=== PATIENT | female | born 1985 | race Caucasian/White ===

== ENCOUNTER 2018-02-16 23:35 | Observation (INO) ==
--- NOTE | 2018-02-17 00:07 | Emergency Department Note ---
ED Disposition Clinical Impression: Asthma with exacerbation Qualifiers: Asthma severity: unspecified severity Asthma persistence: unspecified Qualified Code(s): J45.901 - Unspecified asthma with (acute) exacerbation Community acquired pneumonia Qualifiers: Laterality: right Lung location: lower lobe of lung Qualified Code(s): J18.1 - Lobar pneumonia, unspecified organism Qualifiers: Weeks of gestation: 35 weeks Qualified Code(s): Z3A.35 - 35 weeks gestation of Disposition: Admitted as Observation Condition on Discharge: Good Referrals: Provider,Referral, [Primary Care Provider] - - Critical Care Critical Care Time: No Attestation: On 02/16/18, the high probability of a clinically significant, sudden or life threatening deterioration of the following system(s) required my full and direct attention, intervention and personal management. The time I documented below is in addition to time spent performing reported procedures but includes the following listed in this critical care notation. Medical Decision Making - Medical Records Medical records reviewed: Yes: I reviewed the patient's medical records. - Shad Inquiry Pt receiving controlled substance: No Vital Signs: 02/16/18 23:38 02/17/18 00:04 02/17/18 00:05 Temperature 98.4 F Temperature Source Oral Pulse Rate 91 H 93 H Pulse Rate [Right Radial] 139 H Respiratory Rate 25 H Blood Pressure [Right Arm] 144/78 H Blood Pressure Mean [Right Arm] 100 02 Sat by Pulse Oximetry 94 L Oxygen Delivery Method Oxygen Flow Rate (LPM) 02/17/18 00:44 02/17/18 01:30 02/17/18 02:30 Temperature Temperature Source Pulse Rate 93 H Pulse Rate [Right Radial] 126 H 120 H Respiratory Rate 22 22 Blood Pressure [Right Arm] 114/75 117/69 Blood Pressure Mean [Right Arm] 88 85 02 Sat by Pulse Oximetry 96 93 L Oxygen Delivery Method Room Air Room Air Oxygen Flow Rate (LPM) 02/17/18 02:41 02/17/18 02:51 02/17/18 03:00 Temperature Temperature Source Pulse Rate Pulse Rate [Right Radial] 132 H 121 H Respiratory Rate 24 24 Blood Pressure [Right Arm] 132/78 Blood Pressure Mean [Right Arm] 96 02 Sat by Pulse Oximetry 93 L 98 92 L Oxygen Delivery Method Room Air Nasal Cannula Nasal Cannula Oxygen Flow Rate (LPM) 2 2 - Lab Data Lab results reviewed: Yes: I reviewed the patient's lab results. Lab Results 02/16/18 23:55: WBC 8.3, RBC 3.89 L, Hgb 11.3 L, Hct 34.4 L, MCV 88.3, MCH 29.0, MCHC 32.8, RDW 13.1, Plt Count 174, MPV 9.4, Neut % (Auto) 76.1, Lymph % (Auto) 14.0, [place] % (Auto) 7.4, Eos % (Auto) 2.3, Baso % (Auto) 0.2, Neut # (Auto) 6.3, Lymph # (Auto) 1.2, [place] # (Auto) 0.6, Eos # (Auto) 0.2, Baso # (Auto) 0.0 02/16/18 23:55: Sodium 141, Potassium 3.5, Chloride 106, Carbon Dioxide 24, Anion Gap 14.5, BUN 2 L, Creatinine 0.57, Estimated Creat Clear 234, Estimated GFR 122, Est GFR ( Amer) 148, Glucose 99, Calcium 8.6 02/17/18 02:13: Specimen Source R/r, O2 % R/a, ABG pH 7.43, ABG pCO2 30.7 L, ABG pO2 63.3 L, ABG HCO3 19.7 L, ABG Total CO2 20.7 L, ABG O2 Saturation 92, ABG Base Excess -4.6 L, [place] Test Y Result diagrams: 02/16/18 23:55 02/16/18 23:55 Orders (Tests/Meds): ED MEDICATIONS Generic Name Dose Route Start Last Admin Trade Name Jeancarlos PRN Reason Stop Dose Admin Albuterol Sulfate 2 puffs 02/17/18 06:00 Proventil-Hfa 90mcg/Puff Inhaler IH 03/19/18 05:59 Q6RT NOREEN Azithromycin 500 mg/ Sodium 250 mls @ 250 mls/hr 02/17/18 02:45 02/17/18 02:52 Chloride IV 03/03/18 02:44 250 mls/hr Q24H NOREEN Administration Protocol Ceftriaxone Sodium 1 gm/ 50 mls @ 100 mls/hr 02/17/18 02:45 02/17/18 02:46 Sodium Chloride IV 03/03/18 02:44 100 mls/hr Q24H NOREEN Administration Protocol Discontinued Medications Generic Name Dose Route Start Last Admin Trade Name Jeancarlos PRN Reason Stop Dose Admin Albuterol/Ipratropium 3 ml 02/16/18 23:48 02/17/18 00:[address] [facility] 02/16/18 23:49 3 ml ONCE ONE Administration Levalbuterol HCl 1.25 mg 02/17/18 01:58 02/17/18 02:30 Xopenex 1.25mg/3ml [facility] 02/17/18 01:59 1.25 mg ONCE ONE Administration Methylprednisolone Sodium Succinate 125 mg 02/17/18 00:13 02/17/18 00:16 Solu-Medrol 125mg/2ml Vial IV 02/17/18 00:14 125 mg ONCE ONE Administration Miscellaneous 1 unit 02/17/18 00:56 02/17/18 01:07 Aerochamber/Optihaler MC 02/17/18 00:57 1 unit ONCE ONE Administration ORDERS Category Date Time Status Chest XR -- portable [XR chest portable] Stat Exams 02/17/18 02:21 Taken Lactic Acid Stat Lab 02/17/18 02:35 Received Upper Respiratory Panel, PCR Stat Lab 02/17/18 02:35 Received Blood Culture Stat Micro 02/17/18 02:35 Ordered ABG [Arterial Blood Gas] Stat RT 02/17/18 01:57 Ordered - Radiology Data #1 Image(s): Chest Image Reviewed: Yes I reviewed the patient's radiology image Preliminary Findings: Abnormal (rt lower infl) - Physician Consults Physician Consulted: dom Reason -: Admission Additional Consult: seble Reason -: Pt condition Additional Consult: shell Reason -: Pt condition Resp/SOB HPI - General Chief Complaint: Shortness of Breath/Dyspnea Stated Complaint: difficulty breathing for a while Time Seen by Provider: 02/17/18 00:00 Mode of Arrival: Family Vehicle Source of Information: Patient, Significant Other, Medical Record Limitations: No Limitations Description of Symptoms (Recalled from ER Triage Doc. by RN): pt is 35 weeks . pt states she has asthma and has been sick for 3 days. pt states that she has been progressively getting worse. pt states she now is having difficulty breathing, cough and chest congestion. - History of Present Illness hx of asthma with wheezing and is 35 weeks MD Complaint: shortness of breath, cough, "asthma attack" Onset (ago): day(s) Severity: moderate Relieving factors: bronchodilators Known history of: asthma Associated symptoms: wheezing Treatment prior to arrival: bronchodilator - Related Data Home oxygen amount: none Home Medications Medication Instructions Recorded Confirmed Albuterol Sulfate [Albuterol HFA 1 puff IH Q4HP PRN 02/16/18 02/16/18 Inhaler] Montelukast Sodium [Singulair 10mg 10 mg PO DAILY 02/16/18 02/16/18 tablet] raNITIdine HCl [Ranitidine HCl] 150 mg PO DAILY 02/16/18 02/16/18 Allergies Allergy/AdvReac Type Severity Reaction Status Date / Time No Known Allergies Allergy Verified 02/16/18 23:44 [facility] History I have reviewed the patient's past medical history: Yes Medical History: Denies:: Cancer, Diabetes Mellitus Type 1, Diabetes Mellitus Type 2, MRSA Laterality Cases: Bilateral: Tonsillectomy Amputation: No - Social History Smoking Status: Never smoker Alcohol Intake: never - Psychiatric History Expresses thoughts of harming self/others: None Suicide Plan Description: No Plan Para: 4 ROS Obtained: Yes All systems reviewed & no additional complaints - Constitutional Constitutional: Denies fever(s) - Eyes Eyes: Denies change in vision - ENT Ears, Nose, Mouth, and Throat: Denies sinus pain - Cardiovascular Cardiovascular: Denies chest pain - Respiratory Respiratory: Yes cough, Yes wheezing - Gastrointestinal Gastrointestingal: Denies: abdominal pain - Genitourinary Female Genitourinary: Denies abnormal vaginal bleeding - Musculoskeletal Musculoskeletal: Denies joint pain - Integumentary/Breasts Skin/Breast: Denies rash - Neurologic Neurologic: Denies seizure-like activity Physical Exam - General General appearance: alert, in no apparent distress - Head Head exam: normocephalic - Eye Eye exam: Present: PERRL, EOMI - ENT ENT exam: Present: mucous membranes dry - Neck Neck exam: Present: trachea midline - Respiratory Respiratory exam: Present: wheezes. Absent: respiratory distress - Cardiovascular Cardiovascular exam: Present: regular rate. Absent: systolic murmur - Abdominal Exam Abdominal exam: Present: soft - Extremities Exam Extremities exam: Present: full ROM - Neurological Exam Neurological exam: Present: alert, oriented X3, CN II-XII intact - Psychiatric Psychiatric exam: Present: normal affect - Skin Skin exam: Absent: rash
[2018-02-17 00:16] LABS: Basophils % 0.2 % (0.1-2.0); Eosinophils # 0.2 K/mm3 (0.0-0.4); Eosinophils % 2.3 % (0.1-12.0); Hematocrit 34.4 % (37.0-47.0); Hemoglobin 11.3 g/dL (12.2-16.2); Lymphocytes # 1.2 K/mm3 (0.7-4.5); Mean Corpuscular HGB Conc 32.8 g/dL (31.8-35.4); Mean Corpuscular Volume 88.3 fl (81-99); Mean Platelet Volume 9.4 fl (7.4-10.4); Monocytes # 0.6 K/mm3 (0.1-1.0); Monocytes % 7.4 % (1.7-9.3); Neutrophils # 6.3 K/mm3 (1.8-7.8); Neutrophils % 76.1 % (37.0-80.0); Platelet Count 174 K/mm3 (142-424); Red Blood Count 3.89 M/mm3 (4.20-5.40); Red Cell Distribution Width 13.1 % (11.5-17.5); White Blood Count 8.3 K/mm3 (4.8-10.8)
[2018-02-17 00:18] LABS: Anion Gap 14.5 mEq/L (5-15); Calcium 8.6 mg/dL (8.5-10.1); Potassium 3.5 mmoL/L (3.5-5.1)
[2018-02-17 02:14] LABS: ABG Base Excess -4.6 mmol/L (-2.4-2.3); ABG HCO3 19.7 mmhg (22.0-26.0); ABG Oxygen Saturation 92 % (90-100); ABG PCO2 30.7 mmhg (35.0-45.0); ABG PH 7.43 mmol/L (7.35-7.45); ABG PO2 63.3 mmhg (80-100); ABG TCO2 20.7 mmhg (23-27)
[2018-02-17 02:15] LABS: Allen's Test Y; Oxygen R/A %
[2018-02-17 02:48] LABS: Coronavirus 229E Not Detected (NotDetected); Coronavirus NL63 Not Detected (NotDetected); Coronavirus OC43 Not Detected (NotDetected); Coronovirus HKU1,PCR Not Detected (NotDetected)
[2018-02-17 05:38] LABS: Basophils % 0.2 % (0.1-2.0); Eosinophils % 0.2 % (0.1-12.0); Hematocrit 34.7 % (37.0-47.0); Hemoglobin 11.6 g/dL (12.2-16.2); Lymphocytes # 0.5 K/mm3 (0.7-4.5); Mean Corpuscular HGB Conc 33.5 g/dL (31.8-35.4); Mean Corpuscular Hemoglobin 29.7 pg (27.0-31.2); Mean Corpuscular Volume 88.7 fl (81-99); Mean Platelet Volume 9.8 fl (7.4-10.4); Monocytes # 0.2 K/mm3 (0.1-1.0); Monocytes % 2.1 % (1.7-9.3); Neutrophils # 8.4 K/mm3 (1.8-7.8); Neutrophils % 92.6 % (37.0-80.0); Platelet Count 183 K/mm3 (142-424); Red Blood Count 3.92 M/mm3 (4.20-5.40); Red Cell Distribution Width 13.1 % (11.5-17.5); White Blood Count 9.1 K/mm3 (4.8-10.8)
[2018-02-17 05:44] LABS: Anion Gap 16.8 mEq/L (5-15); Calcium 8.6 mg/dL (8.5-10.1); Potassium 3.8 mmoL/L (3.5-5.1)
[2018-02-17 06:08] LABS: Lymphocytes % 4 % (10-50); Monocytes % 2 % (2-9); Neutrophils % 80 % (42-76); RBC Morphology Normal; Total Cells Counted 100
[2018-02-17 06:09] LABS: Rouleaux 1+
--- NOTE | 2018-02-17 07:12 | History & Physical Report ---
*Admission Date: 02/17/18 *Chief complaint: Shortness of breath *History of present illness: 32-year-old female who is 35 weeks presented to the emergency department with 2 days of shortness of breath and cough secondary to asthma. Patient is visiting from out of town and states Saturday evening she developed runny nose and sneezing. As Saturday progressed patient felt a cough and became increasingly short of breath. Patient was able to use her rescue inhaler or aerosolized albuterol to provide some relief wheezing and cough. By Saturday rescue medications were providing minimal relief. Patient became increasingly short of breath and could not sleep on Saturday night into Saturday morning and pr esented to the emergency department. In the ER patient was tachypneic. Blood gas showed a low PO2. X-ray was suspicious for right lower lobe infiltrate. Since admission patient's viral respiratory panel has returned positive for rhinovirus. Patient was admitted for asthma exacerbation with suspicion of pneumonia. This morning patient feels like she is starting to feel little bit better although is still quite winded with any ambulation. She has never had prior hospitalization for asthma. Her last asthma exacerbation was in the spring during the change of seasons. [facility] History I have reviewed the patient's past medical history: Yes Medical History: Reports:: Asthma Denies:: Cancer, Diabetes Mellitus Type 1, Diabetes Mellitus Type 2, MRSA Laterality Cases: Bilateral: Tonsillectomy Amputation: No Fractures: No - *Social History Educational Level: Attended College Smoking Status: Never smoker Alcohol Intake: never Occupational Status: unemployed Household Members: spouse - Psychiatric History Expresses thoughts of harming self/others: None Suicide Plan Description: No Plan *Family Hx:: No significant family history Para: 4 Review of Systems - Review of Systems Review of systems:: pertinent systems reviewed and negative unless documented below - Constitutional Denies body ache(s), Denies chills, Denies excessive sweating, Denies fever(s), Denies headache(s) - ENT Reports nasal congestion, Reports nasal discharge, Denies ear pain, Denies sinus pressure, Denies sore throat, Denies ringing in the ears - *Cardiovascular Denies chest pain - *Respiratory Reports chest congestion, Reports cough, Reports shortness of breath, Reports shortness of breath with activity - *Gastrointestinal Denies abdominal pain - *Neurologic Denies seizure-like activity Meds Home Medications Medication Instructions Recorded Confirmed Type Albuterol Sulfate [Albuterol HFA 1 puff IH Q4HP PRN 02/16/18 02/17/18 History Inhaler] Montelukast Sodium [Singulair 10mg 10 mg PO DAILY 02/16/18 02/17/18 History tablet] raNITIdine HCl [Ranitidine HCl] 150 mg PO DAILY 02/16/18 02/17/18 History Allergies Allergy/AdvReac Type Severity Reaction Status Date / Time No Known Allergies Allergy Verified 02/16/18 23:44 Exam Vital signs and Labs for Last 24 Hours: Temp Pulse Resp BP Pulse Ox 97.8 F 121 H 21 122/59 L 93 L 02/17/18 03:32 02/17/18 06:31 02/17/18 03:32 02/17/18 03:32 02/17/18 06:31 Laboratory Results - last 24 hr 02/16/18 23:55: WBC 8.3, RBC 3.89 L, Hgb 11.3 L, Hct 34.4 L, MCV 88.3, MCH 29.0, MCHC 32.8, RDW 13.1, Plt Count 174, MPV 9.4, Neut % (Auto) 76.1, Lymph % (Auto) 14.0, [place] % (Auto) 7.4, Eos % (Auto) 2.3, Baso % (Auto) 0.2, Neut # (Auto) 6.3, Lymph # (Auto) 1.2, [place] # (Auto) 0.6, Eos # (Auto) 0.2, Baso # (Auto) 0.0 02/16/18 23:55: Sodium 141, Potassium 3.5, Chloride 106, Carbon Dioxide 24, Anion Gap 14.5, BUN 2 L, Creatinine 0.57, Estimated Creat Clear 234, Estimated GFR 122, Est GFR ( Amer) 148, Glucose 99, Calcium 8.6 02/17/18 02:13: Specimen Source R/r, O2 % R/a, ABG pH 7.43, ABG pCO2 30.7 L, ABG pO2 63.3 L, ABG HCO3 19.7 L, ABG Total CO2 20.7 L, ABG O2 Saturation 92, ABG Base Excess -4.6 L, [place] Test Y 02/17/18 02:35: Chlamy pneumoniae PCR Not detected, Adenovirus (PCR) Not detected, B.parapertussis DNA PCR Not detected, Coronavirus OC43 (PCR) Not detected, Coronavirus HKU1 (PCR) Not detected, Coronavirus 229E (PCR) Not detected, Coronavirus NL63 (PCR) Not detected, Human Metapneumovir PCR Not detected, Influenza A (H1) PCR Not detected, Influ A (H1N1/09) PCR Not detected, Influenza A (H3) PCR Not detected, Influenza Type A (PCR) Not detected, Influenza Type B (PCR) Not detected, M. pneumoniae (PCR) Not detected, Parainfluenza 1 (PCR) Not detected, Parainfluenza 2 (PCR) Not detected, Parainfluenza 3 (PCR) Not detected, Parainfluenza 4 (PCR) Not detected, RSV (PCR) Not detected, Entero/Rhino (PCR) Detected A 02/17/18 02:35: Lactate 1.4 02/17/18 05:24: WBC 9.1, RBC 3.92 L, Hgb 11.6 L, Hct 34.7 L, MCV 88.7, MCH 29.7, MCHC 33.5, RDW 13.1, Plt Count 183, MPV 9.8, Neut % (Auto) 92.6 H, Lymph % (Auto) 5.0 L, [place] % (Auto) 2.1, Eos % (Auto) 0.2, Baso % (Auto) 0.2, Neut # (Auto) 8.4 H, Lymph # (Auto) 0.5 L, [place] # (Auto) 0.2, Eos # (Auto) 0.0, Baso # (Auto) 0.0, Total Counted 100, Neutrophils % (Manual) 80 H, Band Neutrophils % 14.0 H, Lymphocytes % (Manual) 4 L, Monocytes % (Manual) 2, Platelet Estimate Normal, RBC Morphology Normal, Rouleaux 1+ 02/17/18 05:24: Sodium 140, Potassium 3.8, Chloride 105, Carbon Dioxide 22, Anion Gap 16.8 H, BUN 2 L, Creatinine 0.56, Estimated Creat Clear 228, Estimated GFR 125, Est GFR ( Amer) 151, Glucose 162 H D, Calcium 8.6, Magnesium 1.6 I & O for Last 24 hours: Intake & Output 02/14/18 02/15/18 02/16/18 02/17/18 11:59 11:59 11:59 11:59 Intake Total Balance Weight 222 lb 9 oz Narrative: Patient is sitting up on the side of the bed. She is alert and oriented. ENT exam reveals normal tympanic membranes. Nasal mucosa is congested. Oropharynx is moist and clear. Neck is without lymphadenopathy. Lungs have fair inspiration and diffuse expiratory wheezes posteriorly. No focal rales. Heart rate is tachycardic. Abdomen is gravid. Assessment and Plan (1) Asthma with exacerbation Current visit: Yes Status: Acute Qualifiers: Asthma severity: unspecified severity Asthma persistence: unspecified Qualified Code(s): J45.901 - Unspecified asthma with (acute) exacerbation Category: Medical Code(s): J45.901 - Unspecified asthma with (acute) exacerbation (2) Current visit: Yes Status: Acute Qualifiers: Weeks of gestation: 35 weeks Qualified Code(s): Z3A.35 - 35 weeks gestation of Category: Medical Code(s): Z34.90 - Encounter for supervision of normal , unspecified, unspecified trimester - Assessment and plan all Dx Assessment and Plan for all problems:: 1. Patient is suffering from asthma exacerbation likely triggered by rhinovirus infection. Continue IV steroids and aerosols. Patient will also be given intravenous magnesium sulfate x1. She has been advised to use supplemental oxygen during her hospitalization as well. 2. Continue IV antibiotics for now although patient has not had any symptoms to suggest underlying bacterial pneumonia.
--- NOTE | 2018-02-17 08:26 | Pharmacy Consult Notes ---
[facility] Pharmacy VTE Monitoring - Patient Demographics Admission date: 02/17/18 Report Date: 02/17/18 Time: 08:26 Allergies/Adverse Reactions: Patient Allergies No Known Allergies Allergy (Verified 02/16/18 23:44) Height: 1.63 m Weight: 100.953 kg Patient Problems: Current Active Problems Asthma with exacerbation (Acute) Community acquired pneumonia (Acute) (Acute) - VTE Risk Labs: VTE Related Lab Results Hgb 11.6 g/dL (12.2-16.2) L 02/17/18 05:24 Hct 34.7 % (37.0-47.0) L 02/17/18 05:24 Plt Count 183 K/mm3 (142-424) 02/17/18 05:24 BUN 2 mg/dL (7-18) L 02/17/18 05:24 Creatinine 0.56 mg/dL (0.55-1.02) 02/17/18 05:24 Estimated Creat Clear 228 mL/min (0-300) 02/17/18 05:24 Was VTE Risk Assessment Performed: Yes VTE Score: 4 VTE Risk Level: Low Risk Clinical Trial Participant: No - Prophylaxis VTE Prophylaxis Ordered?: Yes Types of VTE Prophylaxis: TEDS Knee High
--- NOTE | 2018-02-18 07:20 | Discharge Summary ---
General - General Admission date:: 02/17/18 Discharge date: 02/18/18 HPI HPI: 32-year-old female who is 35 weeks presented to the emergency department with 2 days of shortness of breath and cough secondary to asthma. Patient is visiting from out of town and states Saturday evening she developed runny nose and sneezing. As Saturday progressed patient felt a cough and became increasingly short of breath. Patient was able to use her rescue inhaler or aerosolized albuterol to provide some relief wheezing and cough. By Saturday rescue medications were providing minimal relief. Patient became increasingly short of breath and could not sleep on Saturday night into Saturday morning and presented to the emergency department. In the ER patient was tachypneic. Blood gas showed a low PO2. X-ray was suspicious for right lower lobe infiltrate. Since admission patient's viral respiratory panel has returned positive for rhinovirus. Patient was admitted for asthma exacerbation with suspicion of pneumonia. This morning patient feels like she is starting to feel little bit better although is still quite winded with any ambulation. She has never had prior hospitalization for asthma. Her last asthma exacerbation was in the spring during the change of seasons. Hospital Course Hospital Course: Patient was admitted and placed on Solu-medrol, Rocephin, Azithromycin, Xopenex/Ipratropium nebs. She gradually improved as initial day of admission progress. She was able to sleep overnight. Breathlessness improved. Cough Improved. URI panel revealed rhinovirus. heart tones were checked twice daily. On Feb 18 she was discharged home in stable condition. She will follow up with her PCP on Saturday. Follow up with OB next week. Objective Vital signs: Temp Pulse Resp BP Pulse Ox 97.8 F 100 H 20 123/71 95 02/18/18 04:00 02/18/18 06:05 02/18/18 04:00 02/18/18 04:00 02/18/18 06:05 Results Labs on day of discharge: Preliminary micro results at discharge 02/17/18 10:00 Sputum Culture - Preliminary Sputum - Expectorated Sputum DS: Diagnosis - Discharge Diagnosis (1) Asthma with exacerbation Status: Acute (2) Status: Acute Discharge Plan - Patient Discharge Instructions ACTIVITY: Continue current activity DIET: continue same diet Patient Instructions: Pneumonia-Adult, DI for Pneumonia -- Adult, Enterovirus D68 Infection, DI for Enterovirus D68 - Follow up Plan Follow up with: Nathan Willis [Referring] - 02/21/18 Disposition: Home, Self-Retirement Medications: Home Medications Medication Instructions Recorded Confirmed Type Montelukast Sodium [Singulair 10mg 10 mg PO DAILY 02/16/18 02/17/18 History tablet] raNITIdine HCl [Ranitidine HCl] 150 mg PO DAILY 02/16/18 02/17/18 History Prescriptions/Medication Reconciliation: New predniSONE [Deltasone 20mg tablet] 20 mg PO DAILY #15 tab Albuterol Sulfate [Albuterol HFA Inhaler] 1 puff IH Q4HP PRN #1 [email or web address] PRN Reason: Shortness Of Breath Or Wheezing Continue raNITIdine HCl [Ranitidine HCl] 150 mg PO DAILY Montelukast Sodium [Singulair 10mg tablet] 10 mg PO DAILY
== END 2018-02-18 09:11 | disposition home or self-care (01) ==
LOC: 2ND 23:35 → ER 23:35 → 2ND 02-17 03:39
PROVIDERS: ADMIT Family Medicine; ATTEND Family Medicine

== ENCOUNTER 2024-01-09 15:04 | Outpatient (CLI) | payer SELFPAY ==
--- NOTE | 2024-01-09 15:08 | US_ITS ---
PROCEDURE: US OB /MATERNAL DETAIL CLINICAL INDICATION: POSSIBLE TWIN COMPARISON: No exams were available for comparison FINDINGS: Transabdominal sonographic images of the pelvis were obtained. From her established due date she is 33 weeks 0 days. Twin viable intrauterine gestation. Cephalic-cephalic position. Placenta: Fundalplacenta grade 2. There is an average amount of fluid around both fetuses. The cervix appears satisfactory. Closed and measuring 4.8 cm in length. FETUS A: Complete survey performed and images were submitted in PACS. No discrete anomalies identified on survey imaging by technologist. Active fetus. Two-vessel cord with satisfactory umbilical cord insertion. 4- chamber heart noted. Situs, aortic arch, LVOT, RVOT, three-vessel view appear normal. Survey of brain & ventricles Unremarkable. Thalamus is seen and appears normal. Face and neck survey unremarkable. Profile, nasion, lips and nose appeared normal. Diaphragm and chest views unremarkable. Abdomen: Both kidneys noted and unremarkable. Stomach and bladder noted and satisfactory. Spine: Survey of the spine satisfactory with no anomalies identified nor imaged. Cervical, thoracic, lower spine appear normal. Both arms and legs noted. Amniotic Fluid: Adequate. MVP 5.49 cm. Measurements: Average ultrasound age 34weeks 1day. Estimated due date by ultrasound age 1002/10/2024. Estimated weight 2,282g, 5 lb 0 oz BPD = 34weeks 2days, 78 percentile HC = 34weeks 5days, 58 percent AC = 33weeks 4days, 67 percent FL = 33weeks 6days, >95 percentile Growth Percentile= 67 Heart Rate = 132bpm Humerus = 35weeks 3days HC/AC is 1.05 FL/BPD is 0.77 FL/AC is 0.22 FETUS B: Complete survey performed and images were submitted in PACS. No discrete anomalies identified on survey imaging by technologist. Active fetus. Two-vessel cord with satisfactory umbilical cord insertion. 4- chamber heart noted. Situs, LVOT, RVOT, appear normal. Survey of brain & ventricles Unremarkable. Choroid plexus appears normal. Face and neck survey unremarkable. Profile, nasion, lips and nose appeared normal. Diaphragm and chest views unremarkable. Abdomen: Both kidneys noted and unremarkable. Stomach and bladder noted and satisfactory. Spine: Survey of the spine not satisfactory with no anomalies identified nor imaged. Images with the spine were not satisfactory. Both arms and legs noted. Amniotic Fluid: Adequate. MVP 5.66 cm. Measurements: Average ultrasound age 34weeks 1day. Estimated due date by ultrasound age 1002/10/2024. Estimated weight 2,282g, 5 lb 15 oz BPD = 34weeks 4days, 85 percentile HC = 36 weeks 2 days, 89 percentile AC = 36 weeks 1 day, >98 percentile FL = 34 weeks 3 days, 76 percentile Growth Percentile= 97 Heart Rate = 132bpm Humerus = 35weeks 3days HC/AC is 1.05 FL/BPD is 0.77 FL/AC is 0.22 IMPRESSION: 1. Viable twin cephalic/cephalic. Chorionicity is not able to be determined at this late date. 2. Difficult examination due to late presentation and anatomical scan was incomplete. 3. The fluid appears normal around each fetus. 4. Anatomical scan for both fetus is appear normal but incomplete due to late presentation. 5. Both fetuses have a 2 vessel cord. 6. Suggest a maternal medicine high risk consult in [place]. Dictated by: Gilbert Javier MD 01/09/2024 16:54 Gilbert Javier MD in [place] 01/09/2024 16:54
== END 2024-01-09 23:59 | disposition home or self-care (01) ==
LOC: RAD 15:04
DX: O30.003 Twin pregnancy, unspecified number of placenta and unspecified number of amniotic sacs, third trimester (principal); Z3A.34 34 weeks gestation of pregnancy
CPT/HCPCS: 76811